=== PATIENT | female | born 1990 | race African-American/Black ===

== ENCOUNTER 2016-05-02 17:13 | Emergency (ER) | payer SELFPAY ==
[~2016-05-02] VITALS: Wt 62.5 kg
[2016-05-02 17:54] LABS: ADD SCAN DIFF NO
[2016-05-02 17:57] LABS: BASOPHIL # 0.1 10^3/ul (0.0-0.1); BASOPHILS % 0.5 % (0.0-2.0); EOSINOPHILS # 0.3 10^3/ul (0.0-0.5); EOSINOPHILS % 2.9 % (0.0-7.0); HEMATOCRIT 34.9 % (37.0-47.0); HEMOGLOBIN 11.2 g/dl (12.0-16.0); LYMPHOCYTES # 3.1 10^3/ul (0.8-2.9); LYMPHOCYTES % 29.9 % (15.0-51.0); MEAN CORPUSCULAR HEMOGLOBIN 26.2 pg (29.0-33.0); MEAN CORPUSCULAR HGB CONC 32.1 g/dl (32.0-37.0); MEAN CORPUSCULAR VOLUME 81.7 fl (82.0-101.0); MEAN PLATELET VOLUME 8.9 fl (7.4-10.4); MONOCYTE # 0.8 10^3/ul (0.3-0.9); MONOCYTES % 7.1 % (0.0-11.0); NEUTROPHIL # 6.2 10^3/ul (1.6-7.5); NEUTROPHILS % 59.4 % (39.0-77.0); PLATELET COUNT 312 10^3/UL (140-415); RED BLOOD COUNT 4.27 10^6/ul (4.20-5.40); RED CELL DISTRIBUTION WIDTH 13.5 % (11.5-14.5); WHITE BLOOD COUNT 10.5 10^3/ul (4.8-10.8)
[2016-05-02] MEDS ORDERED: IBUPROFEN 800 MG TAB PO ONE (18:00)
[2016-05-02 18:04] LABS: INR 0.94; PROTIME 12.6 Sec (12.2-14.2)
[2016-05-02 18:05] LABS: PARTIAL THROMBOPLASTIN TIME 29.5 Sec (25.0-35.0)
[2016-05-02 18:08] LABS: ALBUMIN/GLOBULIN RATIO 1.21; BILIRUBIN,INDIRECT 0.1 mg/dl (0-1.1); BILIRUBIN,TOTAL 0.1 mg/dl (0.2-1.3); CALCIUM 9.8 mg/dl (8.4-10.2); CREATININE 0.63 mg/dl (0.44-1.00); TOTAL PROTEIN 7.3 g/dl (6.1-8.1)
--- NOTE | 2016-05-02 18:36 | RADRPT ---
PROCEDURE: US Lower extremity Venous. CLINICAL INDICATION: Bilateral lower extremity swelling , pain TECHNIQUE: Multiple sonographic images of the bilateral lower extremity deep venous system was obt ained utilizing grayscale, color-flow, compressive sonography and doppler imaging with augmentation. The images were reviewed on a PACS workstation. COMPARISON: None. FINDINGS: There is normal compressibility and flow within the bilateral common femoral, superficial femoral , posterior tibial and popliteal veins. RPTAT: AA IMPRESSION: No sonographic evidence for deep venous thrombosis. .Niles Montoya MD, MD Date Time Electronically viewed and signed by .Niles Montoya MD, on 05/02/2016 18:35 .S/
[2016-05-02 19:01] LABS: THYROID STIMULATING HORMONE 1.4 MIU/L (0.465-4.680)
[2016-05-02] MEDS ORDERED: IBUP-1542 PO (19:13)
--- NOTE | 2016-05-02 19:15 | ERD ---
ER Documentation Chief Complaint Date/Time DATE: 05/02/16 TIME: 19:15 Chief Complaint BILATERAL THIGH NUMBNESS FOR 2 MONTHS. NO TRAUMA. ABLE TO BEAR WT HPI Patient is a 26-year-old female with no medical problems who presents with bilateral leg pain. She has tingling in her legs as well. She feels the pain from the knees to the hips. She went to an urgent care a few weeks ago and had a workup which was negative. She said the pain is been there for 2 months now. She was concerned for possible blood clots. She also had heart palpitations and shortness of breath. She tried warm baths and try to leave today she does not like taking medicines. She has had no recent travel. Upon review of old medical records this is the patient's first visit to the emergency department. ROS All systems reviewed and are negative except as per history of present illness. Medications Home Meds Active Scripts Ibuprofen* (Motrin*) 600 Mg Tab, 600 MG PO Q6H Y for PAIN AND OR ELEVATED TEMP, #30 TAB Prov:RAFFI DAVISON MD 05/02/16 PMhx/Soc Medical and Surgical Hx: pt denies Medical Hx, pt denies Surgical Hx Hx Alcohol Use: No Hx Substance Use: No Hx Tobacco Use: No FmHx Family History: No diabetes Physical Exam Vitals Vital Signs Date Time Temp Pulse Resp B/P Pulse Ox O2 Delivery O2 Flow Rate FiO2 05/02/16 17:29 98.8 93 20 160/74 98 Physical Exam Const: No acute distress Head: Atraumatic Eyes: Normal Conjunctiva ENT: Normal External Ears, Nose and Mouth. Neck: Full range of motion..~ No meningismus. Resp: Clear to auscultation bilaterally Cardio: Regular rate and rhythm, no murmurs Abd: Soft, non tender, non distended. Normal bowel sounds Skin: No petechiae or rashes Back: No midline or flank tenderness Ext: No cyanosis, or edema Neur: Awake and alert Psych: Normal Mood and Affect Result Diagram: 05/02/16 1745 05/02/16 1745 Results 24 hrs Laboratory Tests Test 05/02/16 17:45 Activated Partial Thromboplast Time 29.5Sec Alanine Aminotransferase (ALT/SGPT) 25IU/L Albumin 4.0g/dl Albumin/Globulin Ratio 1.21 Alkaline Phosphatase 63IU/L Anion Gap 15 Aspartate Amino Transf (AST/SGOT) 25IU/L Basophils # 0.110^3/ul Basophils % 0.5% Blood Urea Nitrogen 14mg/dl Calcium Level 9.8mg/dl Carbon Dioxide Level 27mmol/L Chloride Level 104mmol/L Creatinine 0.63mg/dl Direct Bilirubin 0.00mg/dl Eosinophils # 0.310^3/ul Eosinophils % 2.9% Free Thyroxine 0.93ng/dl Globulin 3.30g/dl Glucose Level 90mg/dl Hematocrit 34.9% Hemoglobin 11.2g/dl INR International Normalized Ratio 0.94 Indirect Bilirubin 0.1mg/dl Lipase 81U/L Lymphocytes # 3.110^3/ul Lymphocytes % 29.9% Mean Corpuscular Hemoglobin 26.2pg Mean Corpuscular Hemoglobin Concent 32.1g/dl Mean Corpuscular Volume 81.7fl Mean Platelet Volume 8.9fl Monocytes # 0.810^3/ul Monocytes % 7.1% Neutrophils # 6.210^3/ul Neutrophils % 59.4% Nucleated Red Blood Cells # 0.010^3/ul Nucleated Red Blood Cells % 0.0/100WBC Platelet Count 53221^3/UL Potassium Level 4.0mmol/L Prothrombin Time 12.6Sec Prothrombin Time Ratio 1.0 Red Blood Count 4.2710^6/ul Red Cell Distribution Width 13.5% Sodium Level 142mmol/L Thyroid Stimulating Hormone (TSH) 1.400MIU/L Total Bilirubin 0.1mg/dl Total Protein 7.3g/dl White Blood Count 10.510^3/ul Current Medications Medications (Trade) Dose Ordered Sig/Reina Route PRN Reason Start Time Stop Time Status Last Admin Dose Admin Ibuprofen (Motrin) 800 mg ONCE ONCE PO 05/02/16 18:00 05/02/16 18:01 DC 05/02/16 17:54 Procedures/MDM EKG read by me: Rate/Rhythm: Regular rate and rhythm at a rate of 68 Intervals: Normal Impression: No evidence of ischemia or arrhythmia Ultrasound of bilateral lower extremities negative for DVT per radiology. Patient is a 26-year-old female presents with bilateral leg pain. She has mild anemia with a hemoglobin of 11.2 but does not require transfusion at this time. Her potassium is normal. Her other electrolytes are normal. TSH was normal. Free T4 was normal. Her EKG shows no signs of ischemia. Her ultrasound shows no signs of DVT. She is otherwise well-appearing and well-hydrated. I believe outpatient management is appropriate. I believe she likely has leg cramps and I do not believe she needs admission or further workup at this time. The patient could return for any worsening symptoms. I doubt myositis. Departure Diagnosis: Primary Impression: Leg cramps Laterality: bilateral Qualified Code: R25.2 - Cramp of both lower extremities Condition: Fair Patient Instructions: Possible Causes of Low Back or Leg Pain Referrals: [facility] YOU HAVE RECEIVED A MEDICAL SCREENING EXAM AND THE RESULTS INDICATE THAT YOU DO NOT HAVE A CONDITION THAT REQUIRES URGENT TREATMENT IN THE EMERGENCY DEPARTMENT. FURTHER EVALUATION AND TREATMENT OF YOUR CONDITION CAN WAIT UNTIL YOU ARE SEEN IN YOUR DOCTORS OFFICE WITHIN THE NEXT 1-2 DAYS. IT IS YOUR RESPONSIBILITY TO MAKE AN APPOINTMENT FOR FOLOW-UP CARE. IF YOU HAVE A PRIMARY DOCTOR --you should call your primary doctor and schedule an appointment IF YOU DO NOT HAVE A PRIMARY DOCTOR YOU CAN CALL OUR PHYSICIAN REFERRAL HOTLINE AT IF YOU CAN NOT AFFORD TO SEE A PHYSICIAN YOU CAN CHOSE FROM THE FOLLOWING [facility] [address] [facility]. [facility] [address] [facility] [facility] [address] [facility] [facility] [address] [facility]. [facility] [address] [facility]. [facility]. [address] Additional Instructions: Call your primary care doctor TOMORROW for an appointment during the next 1-2 days.See the doctor sooner or return here if your condition worsens before your appointment time. RAFFI DAVISON MD May 02, 2016 19:15
[2016-05-02 19:33] VITALS: BP 136/82; PULSE 79; RESP 16
== END 2016-05-02 19:34 | disposition home or self-care (01) ==
LOC: FTE 17:13
DX: R25.2 Cramp and spasm (principal)
CPT/HCPCS: 36415; 80053; 83690; 84439; 84443; 85025; 85610; 85730; 93005; 93970